=== PATIENT | female | born 1960 | race Caucasian/White ===

== ENCOUNTER → 2019-05-13 09:57 | Outpatient (CLI) | payer OTHER, SELFPAY | PROVIDERS: PCP Physician Assistant Medical; Visit Provider Podiatrist | DX: M25.552 Pain in left hip (principal); M21.769 Unequal limb length (acquired), unspecified tibia and fibula; Z53.9 Procedure and treatment not carried out, unspecified reason ==

== ENCOUNTER → 2024-07-12 11:25 | Outpatient (CLI) | payer MEDICARE, OTHER, SELFPAY ==
--- NOTE | 2024-07-12 12:18 | EKG_ITS ---
[address] [address] Test Date: 2024-07-12 Pat Name: Gaye Daniels Department: [facility] Room: Gender: Female [employer] Layer: GLORIA : 1960 Requested By: Order Number: [id number] Reading MD: Rhett Coleman Measurements Intervals [place] Rate: 83 P: 51 [place]: 186 QRS: 24 QRSD: 64 T: 34 QT: 368 QTc: 432 Interpretive Statements Normal sinus rhythm with sinus arrhythmia Electronically Signed On 07-12-2024 18:54:42 PDT by Rhett Coleman
[2024-07-12 12:36] LABS: Add Manual Diff / Slide Review NO; Basophils Absolute Auto 0 /uL (0-100); Basophils Percent Auto 0.8 % (0-2); Eosinophils Absolute Auto 100 /uL (0-450); Eosinophils Percent Auto 1.4 % (2-4); Hematocrit 38.1 % (36-46); Hemoglobin 13.1 g/dL (12.0-16.0); Lymphocytes Absolute Auto 2300 /uL (1100-4500); Lymphocytes Percent Auto 45.5 % (25-40); Mean Corpuscular HGB Conc 34.3 % (30-36); Mean Corpuscular Hemoglobin 32.4 PG (26-34); Mean Corpuscular Volume 94.6 fL (80-100); Monocytes Absolute Auto 500 /uL (0-900); Neutrophils Absolute Auto 2200 /uL (1500-7000); Neutrophils Percent Auto 43.3 % (50-75); Platelet Count 245 X10^3/uL (150-400); Red Blood Cell Count 4.03 X10^6/uL (4.0-5.2)
[2024-07-12 12:50] LABS: Hemoglobin A1C% w Est Avg Glu 5.3 % (4.0-6.0)
[2024-07-12 12:53] LABS: Albumin 4.3 g/dL (3.5-5.0); BUN Creatinine Ratio 20.5 (6-22); Blood Urea Nitrogen 16 mg/dL (7-17); Calcium 9.7 mg/dL (8.4-10.2); Carbon Dioxide 29 mmol/L (22-32); Chloride 102 mmol/L (98-107); Estimated Glomerular Filt Rate > 60 mL/min (>60); Glucose 127 mg/dL (80-110); HEMOLYSIS < 15 (0-50); Sodium 139 mmol/L (137-145)
[2024-07-12 13:00] LABS: Prealbumin 27.3 mg/dL (17.6-36.0)
[2024-07-12 15:07] LABS: Vitamin D 25 Hydroxy (D3) 65.5 ng/mL (30.0-100.0)
== END ==
PROVIDERS: PCP Registered Nurse; Referring Provider Orthopaedic Surgery Adult Reconstructive Orthopaedic Surgery; Visit Provider Orthopaedic Surgery Adult Reconstructive Orthopaedic Surgery
DX: Z01.818 Encounter for other preprocedural examination (principal); E55.9 Vitamin D deficiency, unspecified; R73.9 Hyperglycemia, unspecified; R77.0 Abnormality of albumin; Z01.812 Encounter for preprocedural laboratory examination
CPT/HCPCS: 36415; 80048; 82040; 82306; 83036; 84134; 85025; 93005

== ENCOUNTER → 2025-10-13 11:07 | Outpatient (CLI) | payer MEDICARE, OTHER, SELFPAY ==
--- NOTE | 2025-10-13 11:09 | DI.MRI.S_ITS ---
PROCEDURE: MR LUMBAR SPINE WO CON INDICATIONS: lumbar radiculopathy TECHNIQUE: Noncontrast sagittal T1 spin echo and T2 fast echo, sagittal STIR, and T2 fast spin echo through the lumbar spine. In cases with scoliosis, additional coronal T2 fast spin echo may be performed. COMPARISON: [facility] Outside Film, CR, XR LUMBAR SPINE 2 OR 3 VIEWS, 05/16/2024, 16:38. [facility] Outside Film, MR, MR LUMBAR SPINE WITHOUT CONTRAST, 05/13/2024, 10:24. FINDINGS: Image quality: Diagnostic, with note made of motion artifact. Alignment and Curvature: There is mild S shaped lumbar scoliotic curvature. Bone Marrow: Marrow is of normal overall signal. No acute vertebral body compression fractures. Spinal Cord: Conus medullaris terminates at the L1 level. Visualized cord demonstrates normal signal and size. Paraspinous Soft Tissues: No paravertebral masses. T12-L1: Moderate loss of disc height is seen. Loss of disc signal is seen. Mild disc bulge is seen with a mild central/left disc protrusion, as on series 6, image 5. Mild facet joint hypertrophy is seen. No neural foraminal narrowing is seen. Minimal central canal narrowing is seen. When comparison is made with the prior images, these findings are similar. L1-L2: Moderate loss of disc height is seen. Loss of disc signal is seen. Mild disc bulge is seen, with a central/left disc protrusion. There is a focal annular fissure seen posteriorly. Mild facet joint hypertrophy is seen. Mild bilateral neural foraminal narrowing is seen. Mild to moderate central canal narrowing is seen. When comparison is made with the prior images, these findings are similar. L2-L3: The disc height is well-preserved. Loss of disc signal is seen at this level. Mild generalized disc bulge is seen. There is a superimposed central disc protrusion. Reactive marrow endplate changes are seen posteriorly, which are hypointense on T1-weighted imaging and hyperintense on T2 weighted imaging, which is most consistent with edema (Modic type I changes). Moderate facet joint hypertrophy is seen. [id number] bilateral neural foraminal narrowing is seen. Mild central canal narrowing is seen. When comparison is made with the prior images, these findings are similar. L3-L4: Mild loss of disc height is seen. Loss of disc signal is seen. Reactive marrow endplate changes are seen posteriorly, which are hypointense on T1-weighted imaging and hyperintense on T2 weighted imaging, which is most consistent with edema (Modic type I changes). Moderate generalized disc bulge is seen. There is a superimposed central disc protrusion. Moderate facet joint hypertrophy is seen. Associated hypertrophy of the ligamentum flavum can be seen. Moderate bilateral neural foraminal narrowing is seen. Moderate central canal narrowing is seen. No significant change from the prior. L4-L5: Mild loss of disc height is seen. Loss of disc signal is seen. Moderate generalized disc bulge is seen. There is a superimposed central disc protrusion. Moderate facet joint hypertrophy is seen. Associated hypertrophy of the ligamentum flavum can be seen. There is at least moderate bilateral neural foraminal narrowing, right worse than left. At least moderate central canal narrowing is seen. When comparison is made with the prior images, these findings are similar. L5-S1: Mild loss of disc height is seen. Loss of disc signal is seen. Mild generalized disc bulge is seen. At least moderate facet hypertrophy can be seen, right worse than left. There is moderate to severe bilateral neural foraminal narrowing seen, with an associated degree of compression seen upon the exiting nerve roots. Mild central canal narrowing is seen. No significant change from the prior. IMPRESSION: The Multiple levels of lumbar spine degenerative change can be seen, which are overall worst inferiorly. No significant progression compared to the prior outside images. Dictated by: Ney Mosqueda M.D. on 10/13/2025 at 11:05 Approved by: Ney Mosqueda M.D. on 10/13/2025 at 11:11
== END ==
PROVIDERS: PCP Registered Nurse; Referring Provider Orthopaedic Surgery Adult Reconstructive Orthopaedic Surgery; Visit Provider Orthopaedic Surgery Adult Reconstructive Orthopaedic Surgery
DX: M47.816 Spondylosis without myelopathy or radiculopathy, lumbar region (principal); M47.817 Spondylosis without myelopathy or radiculopathy, lumbosacral region; M54.50 Low back pain, unspecified
CPT/HCPCS: 72148